=== PATIENT | male | born 1970 | race Caucasian/White ===

== ENCOUNTER → 2017-12-30 | Outpatient (CLI) | payer OTHER ==
[~2017-12-30] MED LIST: Bactrim Ds Tab1 EACH; CEPH500 PO; IBUP800 PO; RANI150 PO
== END ==
LOC: LAB SHORT 10:56 → LAB SRC 10:56
DX: Z51.81 Encounter for therapeutic drug level monitoring (principal); Z79.899 Other long term (current) drug therapy
CPT/HCPCS: G0480

== ENCOUNTER → 2018-08-27 | Outpatient (CLI) | payer OTHER | END | disposition home or self-care (01) | LOC: PLD 14:37 → LAB SHORT 14:37 | DX: D22.39 Melanocytic nevi of other parts of face (principal) | CPT/HCPCS: 88305 ==

== ENCOUNTER 2022-06-28 10:17 | Emergency (ER) | payer OTHER ==
[~2022-06-28] VITALS: Ht 182.9 cm; Wt 81.7 kg
[~2022-06-28 10:17] MED LIST changes: +CYCL10 PO; +FAMO20 PO; +LIDO700A20 TOP; +PANT40 PO; +Percocet 5-3251 EACH PO; +Roxicodone5 MG PO; +TUMS500 MG PO
[2022-06-28 10:28] VITALS: BP 124/90
[2022-06-28] MEDS ORDERED: Bactrim Ds Tab1 EACH PO (11:05)
== END 2022-06-28 11:15 | disposition home or self-care (01) ==
LOC: ER 10:17
DX: L02.413 Cutaneous abscess of right upper limb (principal); F17.220 Nicotine dependence, chewing tobacco, uncomplicated
CPT/HCPCS: 99282

== ENCOUNTER 2022-07-25 08:24 | Day surgery (SDC) | payer OTHER ==
[~2022-07-25] VITALS: Ht 180.3 cm; Wt 83.7 kg
[~2022-07-25 08:24] MED LIST changes: +Bactrim Ds Tab1 EACH PO
[2022-07-25] MEDS ORDERED: AUVELITY ER 451 EACH (08:52)
[2022-07-25 11:14] VITALS: BP 126/85
== END 2022-07-25 11:08 | disposition home or self-care (01) ==
LOC: ORSCSDS 08:24
PROVIDERS: Internal Medicine Gastroenterology
PROC: 0DBK8ZX Excision of Ascending Colon, Via Natural or Artificial Opening Endoscopic, Diagnostic (ICD-10-PCS; principal; 2022-07-25 10:00)
PROC: 0DBN8ZX Excision of Sigmoid Colon, Via Natural or Artificial Opening Endoscopic, Diagnostic (ICD-10-PCS; principal; 2022-07-25 10:00)
PROC: 0DBL8ZX Excision of Transverse Colon, Via Natural or Artificial Opening Endoscopic, Diagnostic (ICD-10-PCS; principal; 2022-07-25 10:00)
DX: Z12.11 Encounter for screening for malignant neoplasm of colon (principal); D12.3 Benign neoplasm of transverse colon; D12.2 Benign neoplasm of ascending colon; D12.5 Benign neoplasm of sigmoid colon; K57.50 Diverticulosis of both small and large intestine without perforation or abscess without bleeding; K64.8 Other hemorrhoids; K64.4 Residual hemorrhoidal skin tags; K21.9 Gastro-esophageal reflux disease without esophagitis; Z86.19 Personal history of other infectious and parasitic diseases; Z72.0 Tobacco use
CPT/HCPCS: 88305; J2704; J7120

== ENCOUNTER 2022-10-07 09:25 | Day surgery (SDC) | payer OTHER ==
[~2022-10-07] VITALS: Ht 180.3 cm; Wt 96.4 kg
[~2022-10-07 09:25] MED LIST changes: +AUVELITY ER 451 EACH
[2022-10-07] MEDS ORDERED: GABA400 PO (09:58)
[2022-10-07] MEDS ORDERED: Ranitidine HCl150 M1 PO (09:58)
[2022-10-07] MEDS ORDERED: TAMS.4ER PO (09:58)
[2022-10-07] MEDS ORDERED: AMOCLA500 PO (09:59)
[2022-10-07] MEDS ORDERED: Budeprion Xl300 MG PO (10:00)
--- NOTE | 2022-10-07 10:40 | NUR ---
10/07/22 1040 Aixa Araujo BLOCK STARTED IN LEFT HAND BY [facility].JXC. PT TOLERATED WELL. FLUSHED WITH 10ML NORMAL SALINE FLUSH.
[2022-10-07 11:31] VITALS: BP 134/94
--- NOTE | 2022-10-07 11:44 | NUR ---
10/07/22 1144 Salinas Mora IV REMOVED INTACT. SITE WNL.
== END 2022-10-07 12:00 | disposition home or self-care (01) ==
LOC: ORSCSDS 09:25
PROVIDERS: Orthopaedic Surgery
PROC: 01N50ZZ Release Median Nerve, Open Approach (ICD-10-PCS; principal; 2022-10-07 10:45)
DX: G56.03 Carpal tunnel syndrome, bilateral upper limbs (principal); F17.220 Nicotine dependence, chewing tobacco, uncomplicated; E78.5 Hyperlipidemia, unspecified; K21.9 Gastro-esophageal reflux disease without esophagitis; Z79.899 Other long term (current) drug therapy
CPT/HCPCS: J0690; J1885; J2250; J3010; J7120

== ENCOUNTER 2022-10-31 09:26 | Emergency (ER) | payer OTHER ==
[~2022-10-31] VITALS: Ht 180.3 cm; Wt 90.7 kg
[~2022-10-31 09:26] MED LIST changes: +AMOCLA500 PO; +Budeprion Xl300 MG PO; +GABA400 PO; +Ranitidine HCl150 M1 PO; +TAMS.4ER PO
[2022-10-31 10:02] VITALS: BP 143/104
[2022-10-31 10:36] LABS: BASOPHILS ABSOLUTE AUTO 0.07 K/mm3 (0.00-0.23); BASOPHILS PERCENT AUTO 1 % (0-2); EOSINOPHILS ABSOLUTE AUTO 0.55 K/mm3 (0.00-0.68); EOSINOPHILS PERCENT AUTO 6 % (0-6); Hematocrit 43.4 % (37.0-53.0); Hemoglobin 14.7 g/dL (13.5-17.5); IMMATURE GRAN ABSOLUTE AUTO 0.03 K/mm3 (0.00-0.10); IMMATURE GRAN PERCENT AUTO 0 % (0-1); LYMPHOCYTES ABSOLUTE AUTO 1.22 K/mm3 (0.84-5.20); LYMPHOCYTES PERCENT AUTO 13 % (21-46); MONOCYTES ABSOLUTE AUTO 0.59 K/mm3 (0.16-1.47); MONOCYTES PERCENT AUTO 6 % (4-13); Mean Corpuscular HGB 29.1 pg (26.0-34.0); Mean Corpuscular HGB Conc 33.9 g/dL (31.5-36.5); Mean Corpuscular Volume 86 fL (80-100); Mean Platelet Volume 8.8 fL (9.1-12.4); NEUTROPHILS ABSOLUTE AUTO 6.78 K/mm3 (1.96-9.15); NEUTROPHILS PERCENT AUTO 73 % (41-73); Platelet Count 275 K/mm3 (150-400); RDW Coefficient Variation 12.5 % (11.7-14.2); Red Blood Cell Count 5.06 M/mm3 (4.30-5.90); White Blood Cell Count 9.24 K/mm3 (4.00-11.30)
[2022-10-31 11:00] LABS: Albumin, Blood 3.6 g/dL (3.4-5.0); Bilirubin, Total 0.2 mg/dL (0.1-1.0); Bun/Creatinine Ratio 16.8 (12.0-20.0); Calcium, Blood 8.7 mg/dL (8.5-10.1); Creatinine, Blood 1.01 mg/dL (0.60-1.20); Globulin, Blood 3.7 g/dL (2.2-4.0); Potassium, Blood 4.3 mmol/L (3.5-5.5); Total Protein, Blood 7.3 g/dL (6.4-8.2)
[2022-10-31] MEDS ORDERED: Norco 5-325 Ta1 EACH PO (12:31)
== END 2022-10-31 13:28 | disposition home or self-care (01) ==
LOC: ER 09:26
PROVIDERS: Physician Assistant
DX: K04.7 Periapical abscess without sinus (principal); Z79.899 Other long term (current) drug therapy; F17.220 Nicotine dependence, chewing tobacco, uncomplicated
CPT/HCPCS: 80053; 85025; 96365; 96375; 99283-25; J1885

== ENCOUNTER 2022-12-02 07:31 | Day surgery (SDC) | payer OTHER ==
[~2022-12-02] VITALS: Ht 182.9 cm; Wt 98.4 kg
[~2022-12-02 07:31] MED LIST changes: +Norco 5-325 Ta1 EACH PO
[2022-12-02] MEDS ORDERED: FAMO20 (07:55)
[2022-12-02] MEDS ORDERED: MELO7.5 PO (07:55)
[2022-12-02 09:49] VITALS: BP 108/85
--- NOTE | 2022-12-02 10:24 | NUR ---
12/02/22 1024 MIKE ORTEZ IV REMOVED WO DIFF. DUTCH WELL. CANNULA INTACT. WNL
== END 2022-12-02 10:30 | disposition home or self-care (01) ==
LOC: ORSCSDS 07:31
PROVIDERS: Orthopaedic Surgery
PROC: 01N50ZZ Release Median Nerve, Open Approach (ICD-10-PCS; principal; 2022-12-02 08:45)
DX: G56.01 Carpal tunnel syndrome, right upper limb (principal); F17.220 Nicotine dependence, chewing tobacco, uncomplicated; Z86.19 Personal history of other infectious and parasitic diseases; Z79.899 Other long term (current) drug therapy
CPT/HCPCS: A9270; J0690; J2704; J7120

== ENCOUNTER 2023-02-17 06:13 | Day surgery (SDC) | payer OTHER ==
[~2023-02-17] VITALS: Ht 182.9 cm; Wt 98.7 kg
[~2023-02-17 06:13] MED LIST changes: +FAMO20; +MELO7.5 PO
--- NOTE | 2023-02-17 07:41 | NUR ---
[facility] BYRD NOTIFIED OF PATIENT TAKING HIS MELOXICAM YESTERDAY. PER DR BYRD, OK TO PROCEED. 0735: BLOCK COMPLETED, TIMEOUT COMPLETED PRIOR TO BLOCK. PT TOLERATED WELL.
--- NOTE | 2023-02-17 08:18 | NUR ---
02/17/23 0818 Delmy Huggins PATIENT POSITIONED ON GEL PADDED DALY BAG. PILLOW UNDER HEAD AND BETWEEN KNEES. GEL UNDER AND IN BETWEEN ANKLES, UNDER SEAT BELTS X2. LEFT ARM SECURED ON PADDED ARM BOARD. POSITION CHECKED BY ANESTHESAI AND SURGEON.
[2023-02-17 09:37] VITALS: BP 133/86
--- NOTE | 2023-02-17 10:22 | NUR ---
02/17/23 1022 Salinas Mora IV REMOVED INTACT. SITE WNL.
== END 2023-02-17 10:22 | disposition home or self-care (01) ==
LOC: ORSCSDS 06:13
PROVIDERS: Orthopaedic Surgery
PROC: 0RNJ4ZZ Release Right Shoulder Joint, Percutaneous Endoscopic Approach (ICD-10-PCS; principal; 2023-02-17 07:30)
PROC: 0LQ14ZZ Repair Right Shoulder Tendon, Percutaneous Endoscopic Approach (ICD-10-PCS; principal; 2023-02-17 07:30)
DX: M75.111 Incomplete rotator cuff tear or rupture of right shoulder, not specified as traumatic (principal); M75.41 Impingement syndrome of right shoulder; Z87.891 Personal history of nicotine dependence
CPT/HCPCS: C1713; J0171; J0690; J1100; J2250; J2371; J2405; J2704; J3010; J7120

== ENCOUNTER → 2023-09-23 | Outpatient (CLI) | payer OTHER ==
[~2023-09-23] MED LIST changes: +ACET325 PO; +AMOCLA875 PO; +BACTRIM DS TAB1 EAC6 PO; +BUPR150ER PO; +DOXY100 PO; -FAMO20; +GABA100 PO; +GABA300 PO; +KETO10 PO; +SENN187 PO; +SULFAMETHOXAZO1 EAC1 PO; +VISBIOME 112.51 EACH PO
== END ==
LOC: LAB 18:35 → LAB SHORT 18:35
DX: R31.9 Hematuria, unspecified (principal)
CPT/HCPCS: 87086

== ENCOUNTER 2024-01-05 10:40 | Day surgery (SDC) | payer OTHER ==
[~2024-01-05] VITALS: Ht 182.9 cm; Wt 97.3 kg
[~2024-01-05 10:40] MED LIST changes: +SULTRIDS PO
[2024-01-05] MEDS ORDERED: ACET500 (11:02)
[2024-01-05] MEDS ORDERED: Lactated Ringer's 1,000 ML IV ONE (12:01)
[2024-01-05] MEDS ORDERED: propofoL 50 ML IV ONE (12:09)
[2024-01-05 12:49] VITALS: BP 116/83
--- NOTE | 2024-01-05 13:49 | NUR ---
01/05/24 [id number] Ana Herrera, PHONE, RING RETURNED TO PATIENT
== END 2024-01-05 12:58 | disposition home or self-care (01) ==
LOC: ORSCSDS 10:40
PROVIDERS: Specialist
PROC: 0DB58ZX Excision of Esophagus, Via Natural or Artificial Opening Endoscopic, Diagnostic (ICD-10-PCS; principal; 2024-01-05 12:15)
DX: K21.00 Gastro-esophageal reflux disease with esophagitis, without bleeding (principal); K44.9 Diaphragmatic hernia without obstruction or gangrene; E78.5 Hyperlipidemia, unspecified; Z79.899 Other long term (current) drug therapy
CPT/HCPCS: 88305; 88342; J2704